=== PATIENT | male | born 1955 | race African-American/Black ===

== ENCOUNTER → 2018-04-21 | Outpatient (CLI) | payer OTHER ==
[~2018-04-21] MED LIST: CENTRUM SILVER1 EAC2 PO; FLEXERIL PO; FLOMAX PO; IBUPROFEN 600600 M1 PO; KEFLEX500 MG PO; LORTAB 5 MG/5001 TA1 PO; NAPROSYN500 MG PO; NOHOMEMEDICATIONS; NORCO 5-325 TA1 EACH PO; PERCOCET 5-3251 EACH PO; PHENERGAN 25 MG25 M1 PO; TIZANIDINE HCL4 MG PO; TRAMADOL 50 MG50 MG PO; VALIUM2 MG PO
--- NOTE | ~2018-04-21 | EKG ---
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
[2018-04-21 14:36] LABS: ABSOLUTE NEUTROPHILS 4.3 thou/uL (1.4-8.2); BASOPHILS 0.8 % (0.0-2.0); EOSINOPHILS 1.2 % (0.0-3.0); HEMATOCRIT 39.9 % (42.0-52.0); HEMOGLOBIN 13.5 gm/dL (14.0-18.0); LYMPHOCYTES 25.3 % (24.0-44.0); MCH 31.5 pg (26.0-34.0); MCHC 33.7 g/dL (28.0-37.0); MCV 93.4 fL (80.0-100.0); MONOCYTES 7.1 % (1.0-8.0); PLATELET COUNT 228 thou/uL (150-400); POLYS 65.6 % (36.0-66.0); RBC 4.27 mil/uL (4.50-6.00); WBC 6.6 thou/uL (4.0-11.0)
[2018-04-21 14:43] LABS: POTASSIUM 4.3 mmol/L (3.5-5.1)
[2018-04-21 15:22] LABS: APTT 26.7 Seconds (24.5-32.8)
== END ==
LOC: RAD 12:42
PROVIDERS: Orthopaedic Surgery Sports Medicine
DX: Z01.818 Encounter for other preprocedural examination (principal)

== ENCOUNTER 2019-04-03 05:13 | Emergency (ER) | payer OTHER ==
[~2019-04-03] VITALS: Ht 170.2 cm; Wt 72.6 kg
[2019-04-03] MEDS ORDERED: PRINIVIL20 MG PO (05:27)
[2019-04-03 05:37] LABS: ABSOLUTE NEUTROPHILS 3.9 thou/uL (1.4-8.2); BASOPHILS 1.2 % (0.0-2.0); EOSINOPHILS 1.9 % (0.0-3.0); HEMATOCRIT 36.3 % (42.0-52.0); HEMOGLOBIN 12.7 gm/dL (14.0-18.0); MCH 32.6 pg (26.0-34.0); MCV 92.9 fL (80.0-100.0); MONOCYTES 9.3 % (1.0-8.0); PLATELET COUNT 235 thou/uL (150-400); POLYS 58.6 % (36.0-66.0); RBC 3.91 mil/uL (4.50-6.00); RDW 13.3 % (10.5-14.5); WBC 6.7 thou/uL (4.0-11.0)
[2019-04-03] MEDS ORDERED: NAPROSYN500 MG PO (05:48)
[2019-04-03 05:49] LABS: ANION GAP 10 mmol/L (7-16); BUN 16 mg/dL (7-18); CALCIUM 9.5 mg/dL (8.5-10.1); CHLORIDE 105 mmol/L (98-107); CO2 25 mmol/L (21-32); CREATININE 1.1 mg/dL (0.7-1.3); GLUCOSE 99 mg/dL (74-106); POTASSIUM 3.8 mmol/L (3.5-5.1); SODIUM 140 mmol/L (136-145)
[2019-04-03 05:54] LABS: ALBUMIN 3.6 g/dL (3.4-5.0); MAGNESIUM 1.8 mg/dL (1.8-2.4); SGOT 28 U/L (15-37); SGPT 39 U/L (30-65); TOTAL BILIRUBIN 0.5 mg/dL (<0.1-1.0); TOTAL PROTEIN 7.3 g/dL (6.4-8.2); TROPONIN-I <0.06 ng/mL (<0.06)
[2019-04-03 06:30] VITALS: BP 145/93
--- NOTE | 2019-04-03 09:21 | EKG ---
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 : 1955 Requested By: Corby Redmond Order Number: [id number] MD: Lee Rodriguez Measurements Intervals [place] Rate: 71 P: 11 OR: 157 QRS: -3 QRSD: 85 T: 20 QT: 371 QTc: 404 Interpretive Statements Sinus rhythm Nonspecific T wave abnormality Compared to ECG 04/21/2018 13:32:22 No significant change was found Electronically Signed On 04-03-2019 9:21:42 CDT by Lee Rodriguez [email or web address] ��������������������������������������������� <ELECTRONICALLY SIGNED> ���������������������������������������� By: Lee Rodriguez MD, [facility] ��������������������������������������������� 04/03/19 0921 0520 05 Lee Rodriguez MD, FACC /EPI
== END 2019-04-03 06:31 | disposition still patient (30) ==
LOC: ER 05:13
PROVIDERS: Emergency Medicine
DX: R07.89 Other chest pain (principal)

== ENCOUNTER 2019-10-22 11:27 | Emergency (ER) | payer OTHER ==
[~2019-10-22] VITALS: Ht 175.3 cm; Wt 79.4 kg
[~2019-10-22 11:27] MED LIST changes: +PRINIVIL20 MG PO
[2019-10-22] MEDS ORDERED: ZESTRIL20 MG PO (12:02)
[2019-10-22] MEDS ORDERED: HYDROXYZINE HCL10 M2 PO (12:02)
[2019-10-22] MEDS ORDERED: MEDROLDOSEPACK PO (12:02)
[2019-10-22 12:50] VITALS: BP 179/102
== END 2019-10-22 12:53 | disposition home or self-care (01) ==
LOC: ER 11:27
DX: L20.9 Atopic dermatitis, unspecified (principal); I10 Essential (primary) hypertension; Z91.19 Patient's noncompliance with other medical treatment and regimen

== ENCOUNTER 2020-01-06 04:32 | Emergency (ER) | payer OTHER ==
[~2020-01-06] VITALS: Ht 170.2 cm; Wt 72.6 kg
[~2020-01-06 04:32] MED LIST changes: +HYDROXYZINE HCL10 M2 PO; +MEDROLDOSEPACK PO; +ZESTRIL20 MG PO
[2020-01-06 04:36] VITALS: BP 136/81
== END 2020-01-06 05:05 | disposition home or self-care (01) ==
LOC: ER 04:32
DX: R51 Headache (principal); H92.01 Otalgia, right ear; H00.011 Hordeolum externum right upper eyelid; I10 Essential (primary) hypertension; Z98.890 Other specified postprocedural states; Z79.899 Other long term (current) drug therapy